=== PATIENT | female | born 1965 | race Caucasian/White ===

== ENCOUNTER 2017-05-13 11:39 | Day surgery (SDC) | payer OTHER ==
[2017-05-13] MEDS ORDERED: LACTATED RINGERS 1,000 ML IV ONE (12:20)
[2017-05-13] MEDS ORDERED: MIDAZOLAM 2 MG/2 ML VIAL IVP ONE (14:44)
[2017-05-13] MEDS ORDERED: fentaNYL 250 MCG/5 ML VIAL IVP ONE (14:44)
[2017-05-13 15:43] VITALS: BP 140/82
== END 2017-05-13 11:40 | disposition home or self-care (01) ==
LOC: SDS 11:39
PROVIDERS: ATTEND Surgery
PROC: 0DBH8ZX Excision of Cecum, Via Natural or Artificial Opening Endoscopic, Diagnostic (ICD-10-PCS; principal; 2017-05-13 13:00)
DX: Z12.11 Encounter for screening for malignant neoplasm of colon (principal); D12.0 Benign neoplasm of cecum; K64.8 Other hemorrhoids; Z87.891 Personal history of nicotine dependence
CPT/HCPCS: 45380; J7120

== ENCOUNTER 2018-01-16 10:02 | Outpatient (CLI) | payer OTHER | END 2018-01-16 10:03 | disposition critical access hospital (66) | LOC: EMS 10:02 | PROVIDERS: ATTEND Surgery | DX: R53.1 Weakness (principal); R42 Dizziness and giddiness | CPT/HCPCS: A0425; A0429 ==

== ENCOUNTER 2018-01-16 10:20 | Emergency (ER) | payer OTHER ==
--- NOTE | 2018-01-16 10:36 | ED Physician Documentation ---
History of Present Illness - Stated complaint Stated Complaint: WEAK NAUSEA DIZZY - Chief complaint Chief Complaint: Neuro - Additonal information Additional information: hx from pt 52 f only pmhx is HTN has felt very tired and fatigued for about 2 weeks today at 930 Am at work developed near syncope, soa, profound weakness no chest discomfort no NV no recent med changes travelled to [place] but by cruise ship so no DVT risk factor called 911 per hosp EKG very abn ST elev with coving in V1 and ST depr V3-V6 upon arrival in ED pt sx have subsided somewhat and her EKG is somewhat improved though still abn (no ST elev, less ST depr) Review of Systems Constitutional: reports: Fatigue. 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 - Present Medications Home Medications: Ambulatory Orders Medication Instructions Recorded Confirmed Esomeprazole Magnesium [Nexium] 1 DAILY 05/13/17 Fluoxetine HCl 1 DAILY 05/13/17 hydroCHLOROthiazide 1 DAILY 05/13/17 [Hydrochlorothiazide] - Allergies Allergies/Adverse Reactions: Allergies Allergy/AdvReac Type Severity Reaction Status Date / Time No Known Drug Allergies Allergy Verified 05/13/17 13:23 PD ED PE NORMAL - Vitals Vital signs reviewed: Yes - General General: Alert and oriented X 3 - Neck Neck: Supple, no meningeal sign - Cardiac Cardiac: RRR - Respiratory Respiratory: No respiratory distress, Clear bilaterally - Abdomen Abdomen: Soft, Non tender - Derm Derm: Normal color - Neuro Neuro: Alert and oriented X 3 Eye Opening: Spontaneous Motor: Obeys Commands Verbal: Oriented GCS Score: 15 Results - Vitals Vitals: Vital Signs - 24 hr 01/16/18 01/16/18 01/16/18 10:21 11:32 13:50 Temperature 36.4 C L 36.4 C L Heart Rate 64 92 89 Respiratory 18 18 18 Rate Blood Pressure 166/103 H 153/75 H 144/88 H O2 Saturation 99 99 96 Oxygen O2 Source Room air - EKG (time done) 1026 Rate: Rate (enter#) (90) Rhythm: NSR, Other (freq PVCs) [place]: Normal Intervals: Normal [place] Ischemia: ST depression (V3-V5) - Labs Labs: Laboratory Tests 01/16/18 01/16/18 01/16/18 10:38 10:38 10:38 WBC 7.2 RBC 4.31 Hgb 14.1 Hct 41.3 MCV 95.9 MCH 32.6 H MCHC 34.0 RDW 12.7 Plt Count 217 MPV 8.6 Neut # (Auto) 4.6 Lymph # (Auto) 1.8 [place]win # (Auto) 0.7 Eos # (Auto) 0.1 Baso # (Auto) 0.0 Absolute Nucleated RBC 0.00 Nucleated RBC % 0.0 Sodium 135 Potassium 3.4 L Chloride 99 L Carbon Dioxide 27 Anion Gap 9.0 BUN 14 Creatinine 0.5 Estimated GFR (MDRD) 129 Glucose 114 H Calcium 9.6 Total Bilirubin 0.8 AST 18 ALT 16 Alkaline Phosphatase 69 Troponin I < 0.04 Total Protein 7.5 Albumin 4.3 Globulin 3.2 Albumin/Globulin Ratio 1.3 Lipase 32 PD MEDICAL DECISION MAKING - ED course ED course: 52 healthy female with near syncope this AM while symptomatic EMS EKG was profoundly abnormal / ischemic sx resolved spont and EKG upon arrival in ER is not normal but is improved with dynamic ischemic EKG chgangages feel pt best transferred to a [facility] facility with cardiology fort further evaluation Prov Emanuel Womack accepts pt is transfer pt had no sig re-occurance of her sx while in the ER and I believe she is stable for transport - Sepsis Event Vital Signs: Vital Signs - 24 hr 01/16/18 01/16/18 01/16/18 10:21 11:32 13:50 Temperature 36.4 C L 36.4 C L Heart Rate 64 92 89 Respiratory 18 18 18 Rate Blood Pressure 166/103 H 153/75 H 144/88 H O2 Saturation 99 99 96 Oxygen O2 Source Room air Departure - Departure Disposition: 02 Transfer Acute Care Hosp Clinical Impression: Near syncope, Abnormal EKG Condition: Fair Discharge Date/Time: 01/16/18 14:47
[2018-01-16] MEDS: SODIUM CHLORIDE 0.9% 1,000 ML IV ONE ×2 (10:41→14:17)
[2018-01-16 10:46] LABS: BASOPHILS % (AUTO) 0.4 %; EOSINOPHILS # (AUTO) 0.1 10^3/uL (0.0-0.7); EOSINOPHILS % (AUTO) 1.2 %; HGB - HEMOGLOBIN 14.1 g/dL (12.0-16.0); LYMPHOCYTES # (AUTO) 1.8 10^3/uL (1.5-3.5); LYMPHOCYTES % (AUTO) 24.3 %; MEAN CORPUSCULAR HEMOGLOBIN 32.6 pg (27.0-31.0); MEAN CORPUSCULAR VOLUME 95.9 fL (81.0-99.0); MEAN PLATELET VOLUME 8.6 fL (7.9-10.8); MONOCYTES # (AUTO) 0.7 10^3/uL (0.0-1.0); MONOCYTES % (AUTO) 10.3 %; NEUTROPHILS # (AUTO) 4.6 10^3/uL (1.5-6.6); NEUTROPHILS % (AUTO) 63.8 %; PLT - PLATELET COUNT 217 10^3/uL (130-450); RED BLOOD COUNT 4.31 10^6/uL (4.20-5.40); RED CELL DISTRIBUTION WIDTH 12.7 % (12.0-15.0); WHITE BLOOD COUNT 7.2 x10^3/uL (4.8-10.8)
[2018-01-16] MEDS: ASPIRIN CHEW 81 MG TABLET PO STA (10:56)
[2018-01-16 10:58] LABS: ALBUMIN 4.3 g/dL (3.2-5.5); ALBUMIN/GLOBULIN RATIO 1.3 (1.0-2.2); BILIRUBIN,TOTAL 0.8 mg/dL (0.2-1.0); CALCIUM 9.6 mg/dL (8.5-10.3); CREATININE 0.5 mg/dL (0.4-1.0); TOTAL PROTEIN 7.5 g/dL (6.7-8.2)
[2018-01-16 13:51] VITALS: BP 144/88
== END 2018-01-16 14:47 | disposition short-term general hospital (02) ==
LOC: EDUNIT# → ED 10:20
DX: R55 Syncope and collapse (principal); R94.31 Abnormal electrocardiogram [ECG] [EKG]; I10 Essential (primary) hypertension
CPT/HCPCS: 36415; 80053; 83690; 84484; 85025; 93005; 96360; 96361; 99284; A9270

== ENCOUNTER 2018-01-16 14:41 | Outpatient (CLI) | payer OTHER | END 2018-01-16 14:42 | disposition short-term general hospital (02) | LOC: EMS 14:41 | PROVIDERS: ATTEND Surgery | DX: R53.1 Weakness (principal); R94.31 Abnormal electrocardiogram [ECG] [EKG] | CPT/HCPCS: A0425; A0426 ==

== ENCOUNTER 2019-03-24 14:36 | Emergency (ER) | payer OTHER ==
[2019-03-24 14:51] VITALS: BP 135/64
--- NOTE | 2019-03-24 14:52 | ED Physician Documentation ---
PD HPI OPHTHO - Stated complaint Stated Complaint: EYE SWELLING AND EYE PX - Chief complaint Chief Complaint: Heent - History obtained from History obtained from: Patient - History of Present Illness Timing - onset: How many days ago (2) Timing - duration: Days (2) Timing - details: Abrupt onset, Still present Location: Right Quality / character: Aching Associated symptoms: Redness, Swelling (of lateral upper eyelid). 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, 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 - Present Medications Home Medications: Ambulatory Orders Medication Instructions Recorded Confirmed Esomeprazole Magnesium [Nexium] 1 DAILY 05/13/17 Fluoxetine HCl 1 DAILY 05/13/17 hydroCHLOROthiazide 1 DAILY 05/13/17 [Hydrochlorothiazide] Bacitracin/Polymyxin Ophth Oin 1 applic OPTH QID #1 tube 03/24/19 [Polysporin Ophth Oint] Doxycycline Hyclate 100 mg PO BID #12 capsule 03/24/19 - Allergies Allergies/Adverse Reactions: Allergies Allergy/AdvReac Type Severity Reaction Status Date / Time No Known Drug Allergies Allergy Verified 05/13/17 13:23 - Social History Does the pt smoke?: No Smoking Status: Never smoker PD ED PE NORMAL - Vitals Vital signs reviewed: Yes - General General: Alert and oriented X 3, No acute distress, Well developed/nourished - HEENT HEENT: PERRL, EOMI, Other (right upper eyelid with local mild swelling and tenderness, some redness externally. underside of lid shows local redness and small point of white without drainage. No FB noted of the eye itself. Not light sensitive. No rash nor redness periorbital. ) - Neck Neck: Supple, no meningeal sign, No adenopathy Results - Vitals Vitals: Vital Signs - 24 hr 09/24/19 14:40 Temperature 36 C L Heart Rate 77 Respiratory 18 Rate Blood Pressure 135/64 H O2 Saturation 98 Oxygen O2 Source Room air PD MEDICAL DECISION MAKING - ED course Complexity details: considered differential, d/w patient Departure - Departure Disposition: 01 Home, Self Care Clinical Impression: Hordeolum externum (stye) Qualifiers: Laterality: right Eyelid: upper Qualified Code(s): H00.011 - Hordeolum externum right upper eyelid Condition: Stable Record reviewed to determine appropriate education?: Yes Instructions: ED [place] Follow-Up: Ike Page MD [Primary Care Provider] - Prescriptions: Bacitracin/Polymyxin Ophth Oin [Polysporin Ophth Oint] 1 applic OPTH QID #1 tube Doxycycline Hyclate 100 mg PO BID #12 capsule Comments: This appears to be an infected eyelid gland. Warm moist compresses to the area periodically for good blood flow and to help promote drainage. Use the antibiotic ointment to the eyelid margin and high 4 times a day until resolved. Doxycycline oral antibiotic twice daily for 4 5 days until resolved. I would expect improvement and resolution over 6 the next several days. Recheck if not better by 5 days anyway and return if worsening. Discharge Date/Time: 03/24/19 15:02
[2019-03-24] MEDS ORDERED: DOXYCYCLINE 100 MG TABLET PO STA (14:53)
== END 2019-03-24 15:02 | disposition home or self-care (01) ==
LOC: ED 14:36
DX: H00.011 Hordeolum externum right upper eyelid (principal); I10 Essential (primary) hypertension
CPT/HCPCS: 99282; 99283; A9270

== ENCOUNTER 2019-06-04 08:04 | Emergency (ER) | payer OTHER ==
--- NOTE | 2019-06-04 08:31 | ED Physician Documentation ---
PD HPI URI - Stated complaint Stated Complaint: CONGESTION/SORE THROAT - Chief complaint Chief Complaint: Resp - History obtained from History obtained from: Patient - History of Present Illness Timing - onset: How many days ago (5) Timing duration: Days (5) Timing details: Gradual onset, Still present (not improving, but not worse) Associated symptoms: Chills, Nasal congestion, Dry cough. No: Fever, NVD Contributing factors: No: Sick contact, Travel, Immunocompromised, COPD / asthma Improves by: No: Medication (OTC cough med) Worsened by: Activity Similar symptoms before: Has not had sx before Review of Systems Constitutional: reports: Chills, Myalgias, Fatigue. denies: Fever Nose: reports: Congestion Throat: denies: Sore throat Cardiac: reports: Chest pain / pressure (anterior with coughing) Respiratory: reports: Cough. 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 - Present Medications Home Medications: Ambulatory Orders Medication Instructions Recorded Confirmed Esomeprazole Magnesium [Nexium] 1 DAILY 05/13/17 Fluoxetine HCl 1 DAILY 05/13/17 Benzonatate [Tessalon Perle] 100 - 200 mg PO TID PRN #30 capsule 06/04/19 Cetirizine [ZyrTEC] 10 mg PO DAILY #15 tablet 06/04/19 Hydrochlorothiazide-Lisinopril 1 tab DAILY 06/04/19 dexAMETHasone [Decadron] 4 mg PO DAILY #7 tablet 06/04/19 - Allergies Allergies/Adverse Reactions: Allergies Allergy/AdvReac Type Severity Reaction Status Date / Time No Known Drug Allergies Allergy Verified 06/04/19 08:22 - Social History Does the pt smoke?: No Smoking Status: Never smoker Does the pt drink ETOH?: Yes Does the pt have substance abuse?: Yes - Immunizations Immunizations are current?: Yes - POLST Patient has POLST: No PD ED PE NORMAL - Vitals Vital signs reviewed: Yes - General General: Alert and oriented X 3, No acute distress, Well developed/nourished - HEENT HEENT: Pharynx benign - Neck Neck: Supple, no meningeal sign, No adenopathy - Cardiac Cardiac: RRR, No murmur - Respiratory Respiratory: Clear bilaterally - Abdomen Abdomen: Soft, Non tender - Derm Derm: Normal color, Warm and dry - Extremities Extremities: No tenderness to palpate, Normal ROM s pain, No edema, No calf tenderness / cord - Neuro Neuro: Alert and oriented X 3, No motor deficit, Normal speech Results - Vitals Vitals: Vital Signs - 24 hr 06/04/19 06/04/19 08:12 09:01 Temperature 36.5 C Heart Rate 86 Respiratory 16 Rate Blood Pressure 175/89 H 151/83 H O2 Saturation 97 Oxygen O2 Source Room air PD MEDICAL DECISION MAKING - ED course Complexity details: considered differential (seems viral symptoms and exam does not reveal concern for pneumonia, strep, otitis. ), d/w patient Departure - Departure Disposition: 01 Home, Self Care Clinical Impression: Upper respiratory infection Qualifiers: URI type: unspecified URI Qualified Code(s): J06.9 - Acute upper respiratory infection, unspecified Condition: Stable Record reviewed to determine appropriate education?: Yes Instructions: ED Upper Resp Infec No Abx Tx Follow-Up: Ike Page MD [Primary Care Provider] - Prescriptions: Benzonatate [Tessalon Perle] 100 - 200 mg PO TID PRN #30 capsule PRN Reason: Cough Cetirizine [ZyrTEC] 10 mg PO DAILY #15 tablet dexAMETHasone [Decadron] 4 mg PO DAILY #7 tablet Comments: Stay well-hydrated. Tylenol or ibuprofen for fevers and pains. This sounds like a viral illness still and hopefully will be getting better over the next few days. We can improve symptoms usually quite well. Decadron steroid for inflammation will reduce symptoms quite a bit. Take this daily for a week. Tessalon if needed for cough suppression. Cetirizine antihistamine to decrease some of the congestion. These should not be sedating. Off work as needed for illness. I would anticipate improvement over the next few days. Forms: Activity restrictions Discharge Date/Time: 06/04/19 09:01
[2019-06-04] MEDS ORDERED: CHERRY SYRUP 10 ML UDC PO ONE (08:43)
[2019-06-04] MEDS ORDERED: DEXAMETHASONE 10 MG/ML VIAL PO STA (08:43)
[2019-06-04] MEDS ORDERED: BENZONATATE 100 MG CAPSULE PO STA (08:43)
[2019-06-04 09:02] VITALS: BP 151/83
== END 2019-06-04 09:01 | disposition home or self-care (01) ==
LOC: ED 08:04
DX: J06.9 Acute upper respiratory infection, unspecified (principal); I10 Essential (primary) hypertension
CPT/HCPCS: 99283; 99284; A9270

== ENCOUNTER 2019-09-07 10:01 | Emergency (ER) | payer OTHER ==
--- NOTE | 2019-09-07 10:34 | ED Physician Documentation ---
PD HPI HEADACHE - Stated complaint Stated Complaint: HIGH BLOOD PRESSURE - Chief complaint Chief Complaint: General - History obtained from History obtained from: Patient - History of Present Illness Timing - onset: How many days ago (few) Timing - onset during: Rest, Light activity Timing - duration: Days (few) Timing - details: Gradual onset (has had feeling of lightheadedness, palpitations, and some headache for few dyas. As she was feeling badly, she started checking her BP and found it consistently in the 150-170 patricia range. Had appt with PCP to discuss it this afternoon, but then her BP was over 200 systolic. She called the provider office and was told to come to ER as it was "a medical emergency" to get her BP down. BP improved by arrival here. Still with same lightheaded feeling and some forceful heart beats at times.), Waxing and waning Quality: Throbbing (has feeling of throbbing at times in head. Also with feeling of surges of heart beat at times.) Associated symptoms: No: Fever, Stiff neck, Nausea, Vomiting, Weakness Contributing factors: Hypertension. No: Recent illness Similar symptoms before: Has not had sx before Recently seen: Not recently seen (but has appt later today) Review of Systems Constitutional: denies: Fever, Chills Nose: denies: Rhinorrhea / runny nose, Congestion Throat: denies: Sore throat Cardiac: reports: Palpitations. 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, 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 - Present Medications Home Medications: Ambulatory Orders Medication Instructions Recorded Confirmed Esomeprazole Magnesium [Nexium] 1 DAILY 05/13/17 Fluoxetine HCl 1 DAILY 05/13/17 Benzonatate [Tessalon Perle] 100 - 200 mg PO TID PRN #30 capsule 06/04/19 Cetirizine [ZyrTEC] 10 mg PO DAILY #15 tablet 06/04/19 Hydrochlorothiazide-Lisinopril 1 tab DAILY 06/04/19 dexAMETHasone [Decadron] 4 mg PO DAILY #7 tablet 06/04/19 Magnesium Oxide [Mag Ox] 400 mg PO DAILY #10 tablet 09/07/19 Potassium Chloride 10 meq PO DAILY #10 tablet.er 09/07/19 - Allergies Allergies/Adverse Reactions: Allergies Allergy/AdvReac Type Severity Reaction Status Date / Time No Known Drug Allergies Allergy Verified 06/04/19 08:22 - Social History Does the pt smoke?: No Smoking Status: Never smoker Does the pt drink ETOH?: Yes ETOH Use: Wine Does the pt have substance abuse?: Yes - Immunizations Immunizations are current?: Yes - POLST Patient has POLST: No PD ED PE NORMAL - Vitals Vital signs reviewed: Yes - General General: Alert and oriented X 3, No acute distress, Well developed/nourished - HEENT HEENT: Pharynx benign - Neck Neck: Supple, no meningeal sign, No adenopathy, No JVD, No bruit - Cardiac Cardiac: RRR, No murmur - Respiratory Respiratory: Clear bilaterally - Abdomen Abdomen: Soft, Non tender - Back Back: No CVA TTP - Derm Derm: Normal color, Warm and dry - Extremities Extremities: No deformity, No tenderness to palpate, Normal ROM s pain, No edema, No calf tenderness / cord - Neuro Neuro: Alert and oriented X 3, No motor deficit, Normal speech Results - Vitals Vitals: Vital Signs - 24 hr 09/07/19 09/07/19 09/07/19 10:04 10:15 10:30 Temperature 36.1 C L Heart Rate 93 Respiratory 18 Rate Blood Pressure 141/97 H 173/88 H 151/89 H O2 Saturation 100 09/07/19 09/07/19 09/07/19 10:45 11:00 11:15 Temperature Heart Rate Respiratory Rate Blood Pressure 146/67 H 155/109 H 130/69 O2 Saturation 09/07/19 09/07/19 09/07/19 11:30 11:45 12:00 Temperature Heart Rate Respiratory Rate Blood Pressure 146/75 H 141/66 H 130/70 O2 Saturation 09/07/19 09/07/19 09/07/19 12:15 12:30 13:21 Temperature 36.8 C Heart Rate 47 L Respiratory 16 Rate Blood Pressure 138/66 H 125/70 152/64 H O2 Saturation 97 Oxygen O2 Source Room air - EKG (time done) 11:06 Rate: Rate (enter#) (73) Rhythm: NSR (slightly irregular c/w PVCs) [place]: Normal Intervals: Normal [place] QRS: Normal Ischemia: Normal ST segments, Non specific changes. No: ST elevation c/w ischemia, ST depression - Labs Labs: Laboratory Tests 09/07/19 09/07/19 09/07/19 11:15 11:15 11:15 WBC 7.7 RBC 4.70 Hgb 14.8 Hct 43.9 MCV 93.4 MCH 31.5 H MCHC 33.7 RDW 11.7 L Plt Count 279 MPV 10.3 Neut # (Auto) 4.5 Lymph # (Auto) 2.3 Sunflower # (Auto) 0.8 Eos # (Auto) 0.1 Baso # (Auto) 0.0 Absolute Nucleated RBC 0.00 Nucleated RBC % 0.0 Sodium 134 L Potassium 3.4 L Chloride 97 L Carbon Dioxide 24 Anion Gap 13.0 BUN 18 Creatinine 0.5 Estimated GFR (MDRD) 128 Glucose 90 Calcium 9.5 Phosphorus 3.4 Magnesium 1.6 L Total Bilirubin 0.9 AST 17 ALT 16 Alkaline Phosphatase 68 Total Protein 7.5 Albumin 4.5 Globulin 3.0 Albumin/Globulin Ratio 1.5 Lipase 40 TSH 1.28 PD MEDICAL DECISION MAKING - ED course Complexity details: re-evaluated patient (Her BP improved without specific treatment.), considered differential (She did not have hypertensive urgey symptoms per se, but with some palpitations. Perhaps misinformed by PCP chief media officer about the emergent nature of lowering elevated BP (more harmful to lower it aggressively actually). will get labs (particularly lytes) given her feeling of irregular heart beat and pounding, and monitor showing PVCs. Her BP is lowering on its own, and I discussed with pt the several guidelines about not treating BP in ER aggressively. ), d/w patient Departure - Departure Disposition: 01 Home, Self Care Clinical Impression: Hypokalemia, Hypomagnesemia, PVCs (premature ventricular contractions) High blood pressure Qualifiers: Hypertension type: unspecified Qualified Code(s): I10 - Essential (primary) hypertension Condition: Stable Record reviewed to determine appropriate education?: Yes Follow-Up: Ike Page MD [Primary Care Provider] - Prescriptions: Magnesium Oxide [Mag Ox] 400 mg PO DAILY #10 tablet Potassium Chloride 10 meq PO DAILY #10 tablet.er Comments: Stay well-hydrated. Add potassium and magnesium supplements. I think your abnormal feeling and also the heart pounding may have been the extra heartbeats of the PVCs and your electrolytes being off. Your blood pressure was high but came down to well normal on its own. Follow-up with your primary care. Discuss with your provider whether to adjust your blood pressure medicine in order to see how it does with electrolyte supplements first so that it does not get too low along the way. Discharge Date/Time: 09/07/19 13:32
[2019-09-07 11:50] LABS: BASOPHILS % (AUTO) 0.4 %; EOSINOPHILS # (AUTO) 0.1 10^3/uL (0.0-0.7); EOSINOPHILS % (AUTO) 1.6 %; HGB - HEMOGLOBIN 14.8 g/dL (12.0-16.0); LYMPHOCYTES # (AUTO) 2.3 10^3/uL (1.5-3.5); LYMPHOCYTES % (AUTO) 29.4 %; MEAN CORPUSCULAR HEMOGLOBIN 31.5 pg (27.0-31.0); MEAN CORPUSCULAR HGB CONC 33.7 g/dL (32.0-36.0); MEAN CORPUSCULAR VOLUME 93.4 fL (81.0-99.0); MEAN PLATELET VOLUME 10.3 fL (7.9-10.8); MONOCYTES # (AUTO) 0.8 10^3/uL (0.0-1.0); MONOCYTES % (AUTO) 9.7 %; NEUTROPHILS # (AUTO) 4.5 10^3/uL (1.5-6.6); NEUTROPHILS % (AUTO) 58.4 %; PLT - PLATELET COUNT 279 10^3/uL (130-450); RED CELL DISTRIBUTION WIDTH 11.7 % (12.0-15.0); WHITE BLOOD COUNT 7.7 x10^3/uL (4.8-10.8)
[2019-09-07 11:52] LABS: ALBUMIN 4.5 g/dL (3.2-5.5); ALBUMIN/GLOBULIN RATIO 1.5 (1.0-2.2); BILIRUBIN,TOTAL 0.9 mg/dL (0.2-1.0); CALCIUM 9.5 mg/dL (8.5-10.3); CREATININE 0.5 mg/dL (0.4-1.0); MAGNESIUM 1.6 mg/dL (1.7-2.8); PHOSPHORUS 3.4 mg/dL (2.5-4.6); TOTAL PROTEIN 7.5 g/dL (6.7-8.2)
[2019-09-07] MEDS ORDERED: MAGNESIUM OXIDE 400 MG TABLET PO STA (12:40)
[2019-09-07] MEDS ORDERED: POTASSIUM CHLORIDE 20 MEQ TABLET PO STA (12:40)
[2019-09-07 13:31] VITALS: BP 152/64
== END 2019-09-07 13:32 | disposition home or self-care (01) ==
LOC: ED 10:01
DX: I10 Essential (primary) hypertension (principal); I49.3 Ventricular premature depolarization; E87.6 Hypokalemia; E83.42 Hypomagnesemia
CPT/HCPCS: 36415; 82088; 83690; 83735; 84100; 84244; 93005; 99283; 99284; A9270; 80053; 84443; 85025

== ENCOUNTER 2020-10-20 08:43 | Emergency (ER) | payer OTHER ==
--- NOTE | 2020-10-20 09:10 | ED Physician Documentation ---
History of Present Illness - Stated complaint Stated Complaint: RT LEG PX - Chief complaint Chief Complaint: Ext Problem - History obtained from History obtained from: Patient - Additonal information Additional information: 55-year-old woman with past medical history of high blood pressure, Covid19 in August, presents with right anterior ankle discoloration that she noticed last night before going to bed. She did have the [employer] vaccine 2 weeks ago and wanted to make sure that she was evaluated. Patient denies history of blood clots, recent surgery or bedrest travel shortness of breath calf swelling or pain. She denies traumatic injury to the ankle, pain with range of motion, motor or sensory issues. She does endorse mild swelling to the anterior ankle. 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 - Present Medications Home Medications: Ambulatory Orders Medication Instructions Recorded Confirmed Esomeprazole Magnesium [Nexium] 1 DAILY 05/13/17 Fluoxetine HCl 1 DAILY 05/13/17 Benzonatate [Tessalon Perle] 100 - 200 mg PO TID PRN #30 capsule 06/04/19 Cetirizine [ZyrTEC] 10 mg PO DAILY #15 tablet 06/04/19 Hydrochlorothiazide-Lisinopril 1 tab DAILY 06/04/19 dexAMETHasone [Decadron] 4 mg PO DAILY #7 tablet 06/04/19 Magnesium Oxide [Mag Ox] 400 mg PO DAILY #10 tablet 09/07/19 Potassium Chloride 10 meq PO DAILY #10 tablet.er 09/07/19 - Allergies Allergies/Adverse Reactions: Allergies Allergy/AdvReac Type Severity Reaction Status Date / Time No Known Drug Allergies Allergy Verified 10/20/20 08:54 - Social History Does the pt smoke?: No Smoking Status: Never smoker Does the pt drink ETOH?: Yes Does the pt have substance abuse?: Yes - Immunizations Immunizations are current?: Yes - POLST Patient has POLST: No PD ED PE NORMAL - Vitals Vital signs reviewed: Yes - General General: Alert and oriented X 3, No acute distress, Well developed/nourished - HEENT HEENT: Atraumatic, PERRL, EOMI - Derm Derm: Normal color, Warm and dry, Other (Spider veins to bilateral legs. Small subcentimeter area of ecchymosis to the right anterior ankle without palpable swelling or visible swelling. 2+ bilateral DP and PT pulses. Normal sensation to bilateral lower extremity. Normal strength and range of motion.) - Extremities Extremities: No deformity, Normal ROM s pain, No edema, No calf tenderness / cord - Neuro Neuro: Alert and oriented X 3 - Psych Psych: Normal mood, Normal affect Results - Vitals Vitals: Vital Signs - 24 hr 10/20/20 08:46 Temperature 36.8 C Heart Rate 105 H Respiratory 16 Rate Blood Pressure 153/70 H O2 Saturation 99 Oxygen O2 Source Room air PD MEDICAL DECISION MAKING - ED course ED course: 55-year-old woman presents status post [employer] vaccine with concerned that she may have a blood clot. She does not have any calf tenderness or swelling and is low risk for clots. The discoloration she noticed appears to be a burst blood vessel. Extensive education given about reasons for return. Patient will follow up with her primary doctor. Departure - Departure Disposition: 01 Home, Self Care Clinical Impression: Superficial bruising of ankle Condition: Good Instructions: ED Screening Exam Medical Nonurgent Comments: You were seen in the emergency for discoloration on your right ankle. It does not appear that you have any signs of blood clot at this time. If you develop calf pain or swelling then please return to the emergency department immediately for ultrasound. Please also return for any new or worsening symptoms or other concerns, as we discussed. Follow-up with your primary doctor this week.
--- OUTSIDE RECORDS SUMMARY | 2020-10-20 09:19 | EXTERNAL MEDICAL SUMMARY RPT | Continuity of Care Document ---
:1965 Demographics Phone Unavailable Preferred Language Unknown Marital Status Unknown [employer] Affiliation Unknown Race Unknown Ethnic Group Unknown Author Organization [facility] Address [address] [phone] Phone Social History date description facility [id number]
[2020-10-20 09:20] VITALS: BP 148/72
== END 2020-10-20 09:20 | disposition home or self-care (01) ==
LOC: ED 08:43
DX: S90.01XA Contusion of right ankle, initial encounter (principal); X58.XXXA Exposure to other specified factors, initial encounter; I10 Essential (primary) hypertension; Z86.16 Personal history of COVID-19
CPT/HCPCS: 99281